=== PATIENT | female | born 1945 | race Caucasian/White ===

== ENCOUNTER → 2016-07-30 | Outpatient (CLI) | payer MEDICARE ==
[~2016-07-30] MED LIST: ALLOPURINOL300 M1 PO; BONIVA150 MG PO; CALCIUM600 MG PO; CEFDINIR 300MG300 MG PO; ECOTRIN81 MG PO; FUROCOT40 MG PO; GLYBURIDE 5MG TA5 MG PO; HYDROCODONE 5MG/5 MG PO; IRON TABLETS325 MG PO; K-DUR 20MEQ TA20 MEQ PO; K-Dur 2020 MEQ PO; LISINOPRIL 5MG T5 MG PO; METFORMIN 500M500 MG PO; METOPROLOL SUCC50 M1 PO; MIRALAX(PO17 GM/1 PA PO; MULTIVITAMIN1 TA2 PO; Monodox100 MG PO; NOVOLOG MIX 70/10 M1 SC; POTASSIUM CHLO20 ME2 PO; PREDNISONE 20MG20 MG PO; PROAIR HFA0.09 MG/AC IH; SYMBICORT1 AE1 IH; THEO-24400 MG PO; TRAMADOL 50MG T50 MG PO; TYLENOL ES500 M1 PO; [UNRECOGNIZED DRUG - CODE] PO; [UNRECOGNIZED DRUG - OTHER] PO
--- NOTE | 2016-08-04 07:57 | RADIOLOGY REPORT PS360 ---
DIG MAMM-SCREEN ANJU W/CAD CAD Screening COMPARISON: Digital mammograms 06/21/2014 and 06/22/2015 INDICATION: There is a history of breast cancer patient's mother and sister both diagnosed after menopause. TECHNIQUE: Standard CC and MLO images were obtained. R2 CAD reviewed. FINDINGS: Again noted is a markedly dense and heterogenic parenchymal pattern lessening the sensitivity of mammography. There are multiple scattered benign-appearing calcifications in each breast stable and unchanged from the previous exams. There is arterial calcification in each breast. There are no suspicious microcalcifications. IMPRESSION: Stable exam with no suspicious lesion seen recommend yearly follow-up BI-RADS CATEGORY: 2_Benign RECOMMENDED FOLLOWUP: 12M 12 MONTH FOLLOW-UP (A letter has been sent to the patient regarding results of the study.)
== END ==
LOC: RAD 08:30
DX: Z12.31 Encounter for screening mammogram for malignant neoplasm of breast (principal)
CPT/HCPCS: G0202